=== PATIENT | female | born 1950 | race Caucasian/White ===

== ENCOUNTER → 2023-10-21 10:09 | Outpatient (REF) | payer OTHER, SELFPAY | LOC: HWRAD 10:09 | PROVIDERS: ATTENDING PHYSICIAN Physician Assistant Medical | DX: M54.16 Radiculopathy, lumbar region (principal) | CPT/HCPCS: 72110 ==

== ENCOUNTER 2024-01-31 08:52 | Emergency (ER) | payer OTHER, SELFPAY ==
[2024-01-31 08:54] VITALS: BP 182/90
[2024-01-31] MEDS: TYLENOL 1000 MG PO (10:36)
[2024-01-31 12:00] VITALS: BP 167/75
--- NOTE | 2024-01-31 12:00 | ED.GENMED ---
History of Present Illness
General
Chief Complaint: Fall
Source: patient and spouse
Exam Limitations: none
Time Seen by Provider: 01/31/24 09:12
Nursing documentation reviewed up to this point in time: agreed with
History of Present Illness
History of Present Illness:
73-year-old female past medical history of GI issues partial bowel resection presenting to the emergency department today after a trip and fall hitting her nose as well as her left wrist. She immediately felt discomfort to the left wrist denies
much discomfort to her nose or face did not lose consciousness not on blood thinners. Denies any chest pain shortness of breath back pain abdominal pain or lower extremity discomfort.
Past History
Past History
ED Past Medical History: Cancer (Breast) and Other (Diverticulitis, bowel perforation)
ED Past Surgical History: Bowel resection (Sigmoid colectomy), Cholecystectomy and Gynecological (Hysterectomy)
Social History
Alcohol: Occasional
Drug: None
Personal:
Living: with family
Review of Systems
Review of Systems
Allergies reviewed?: Yes
All Other Systems: ROS reviewed and negative except as documented in HPI and ROS
Phy Exam
Physical Exam
Physical Exam:
GENERAL: Alert , in no apparent distress
EYE: pupils equal and reactive
NECK: Supple, no significant adenopathy.
ENT: o/p clr, mmm.
CARDIAC: Regular rate and rhythm .
LUNGS: Clear breath sounds bilaterally, no acute respiratory distress, no wheezes/rales/rhonchi
ABDOMEN: Soft, without focal tenderness, no r/g, no cvat
NEUROLOGICAL: Alert and oriented, no focal neuro deficits
SKIN: Warm and dry, skin intact.
MUSCULOSKELETAL: Mild swelling and tenderness palpation to the area just distal to the ulna overlying the wrist. 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
No obvious deformity., well perfused.
PSYCH: Normal and appropriate interaction.
Course
Orders/Labs/Results
Orders:
Orders
01/31/24 09:23
CT Head W/o Iv Contrast Urgent
Comment:
Reason For Exam: fal lhit head
CR Hand - Left 2 Views Urgent
Comment:
Reason For Exam: fall hand pain
CR Wrist - Left Min 3 Views Urgent
Comment:
Reason For Exam: fall wrist pain
01/31/24 09:42
Acetaminophen [Tylenol] 1,000 mg PO NOW STA
Vital Signs
Initial and Last Documented VS:
Initial Vital Signs
Temp Pulse Resp BP Pulse Ox
97.8 F 58 18 182/90 99
01/31/24 08:54 01/31/24 08:54 01/31/24 08:54 01/31/24 08:54 01/31/24 08:54
Last Documented Vital Signs
Temp Pulse Resp BP Pulse Ox
97.8 F 58 18 182/90 99
01/31/24 08:54 01/31/24 08:54 01/31/24 08:54 01/31/24 08:54 01/31/24 08:54
Procedures
Splinting/Sling Placement
Left Wrist:
Procedure completed by: Myself
Pre-splint extermity exam: neurovascular intact
Type of splint: volar
Splint material: fiberglass
Splint checked by provider?: Yes
Type of sling: sling fitted
Normal distal neurovascular exam?: Yes
MDM/Problems Addressed
MDM/Problems Addressed:
73-year-old female presenting to the emergency department today with concerns of conical fall landing on her left wrist also hitting her nasal bridge. Did not lose consciousness not on blood thinners. Here patient has a small bruise to the nasal
bridge but no deformity normal remainder of the HEENT examination normal cranial nerve examination, 5 out of 5 upper and lower extremity strength normal no neck pain. Patient does also have tenderness to the left wrist. Head CT without acute
abnormalities. X-ray of the wrist showing triquetral fracture. Patient was placed in a splint and otherwise will follow-up with orthopedics. Return precautions given.
*Critical Care Note
Total Time (30-74mins, 75-104mins- exclusive of procedures): Not Applicable
ED Attending Note
-
Portions of this chart may have been created with voice recognition software.� Occasional wrong word or��sound alike� substitutions may have occurred due to the inherent limitations of voice recognition software.
Discharge Plan
Departure
Patient Disposition: Home (Routine Discharge)
Date of Disposition: 01/31/24
Time of Disposition: 12:04
Patient with high blood pressure during this ER visit?: No
Condition: Good
Covid-19: Not Applicable
Discharge Problem:
Fracture of triquetrum of left wrist
Instructions: Wrist Fracture
Prescriptions:
No Action
levothyroxine 100 MCG tablet
100 mcg PO DAILY
acetaminophen 500 MG tablet
500 mg PO Q6 PRN (Reason: pain)
lorazepam 0.5 MG tablet
0.5 mg PO Q6 PRN (Reason: anxiety)
calcium carbonate [calcium] 500 MG tablet
1,000 mg PO DAILY
pantoprazole 40 MG tablet,delayed release (DR/EC)
40 mg PO DAILY
hydrochlorothiazide 25 MG tablet
12.5 mg PO DAILY
letrozole 2.5 MG tablet
2.5 mg PO DAILY
cholecalciferol (vitamin D3) 2,000 UNIT tablet
2,000 unit PO DAILY
magnesium citrate [Citroma] 300 ML solution
300 ml PO ONCE Qty: 1 0RF
Referrals:
Elisa Perez PA-C [Family Provider] -
Fabricio Sanchez MD [Active] - Follow up in 5-7 days
Activity Restrictions/Additional Instructions:
You came to the emergency department today with concerns of wrist discomfort. You are found to have a triquetral fracture you were placed in a splint. Please follow closely with [facility]. Return to the emergency department for any worsening, new
or concerning symptoms.
Interventions
Interventions:
*Risk Screen - Suicide Last Done: 01/31/24 08:54
*General Assessment Last Done: 01/31/24 08:54
*Neglect/Abuse Screening Last Done: 01/31/24 08:54
ED- Fall Risk Assessment Last Done: 01/31/24 09:38
*ED COVID-19 Vaccine History Last Done: 01/31/24 08:54
ED-Musculoskeletal Assessment Last Done: 01/31/24 09:38
ED- Neurological Assessment Last Done: 01/31/24 09:38
ED-Skin Assessment Last Done: 01/31/24 09:38
Discharge Date and Time
Print Language: KAZAKH
== END 2024-01-31 12:37 | disposition home or self-care (01) ==
LOC: EMR 08:52
PROVIDERS: EMERGENCY PHYSICIAN Emergency Medicine; FAMILY PHYSICIAN Physician Assistant Medical
DX: S62.112A Displaced fracture of triquetrum [cuneiform] bone, left wrist, initial encounter for closed fracture (principal); S00.33XA Contusion of nose, initial encounter; W01.0XXA Fall on same level from slipping, tripping and stumbling without subsequent striking against object, initial encounter; Z85.3 Personal history of malignant neoplasm of breast; Z90.49 Acquired absence of other specified parts of digestive tract; Z90.710 Acquired absence of both cervix and uterus
CPT/HCPCS: 99284; 29125; 70450; 73110; 73120

== ENCOUNTER → 2024-05-01 13:57 | Outpatient (REF) | payer OTHER, SELFPAY | LOC: HWRAD 13:57 | PROVIDERS: ATTENDING PHYSICIAN Physician Assistant Medical | DX: M81.0 Age-related osteoporosis without current pathological fracture (principal) | CPT/HCPCS: 77080 ==

== ENCOUNTER → 2024-11-10 11:59 | Outpatient (REF) | payer OTHER, SELFPAY | LOC: HWWDC 11:59 | PROVIDERS: ATTENDING PHYSICIAN Physician Assistant Medical | DX: Z12.31 Encounter for screening mammogram for malignant neoplasm of breast (principal) | CPT/HCPCS: 77063; 77067 ==

== ENCOUNTER 2024-12-24 06:40 | Day surgery (SDC) | payer OTHER, SELFPAY ==
--- NOTE | 2024-12-24 09:39 | ITS.CL.CARDI ---
Manager Social - Cardioversion
Cardioversion
Procedure Report:
Date of Procedure: 12/24/24
Procedure: Cardioversion
Indication: Symptomatic atrial fibrillation
Performing Physician: Moreno Jackson MD
Technique: The patient was brought to the holding area. Signed informed consent was obtained. A time out was called and performed. The patient was anesthetized by the anesthesia service. Anticoagulation status was reviewed and appropriate. R2 pads
were placed anteriorly and posteriorly. A 200 J synchronized biphasic shock failed and then a 360J synchronized biphasic shock restored normal sinus rhythm without significant bradycardia. There were no complications.
Conclusion: Uncomplicated cardioversion from atrial fibrillation to sinus rhythm.
Recommendation: Routine post cardioversion care. Continue jail anticoagulation.
== END 2024-12-24 10:20 | disposition home or self-care (01) ==
LOC: CATH 06:40
PROVIDERS: ATTENDING PHYSICIAN Nuclear Medicine Nuclear Cardiology; FAMILY PHYSICIAN Physician Assistant Medical; OTHER PHYSICIAN Internal Medicine Cardiovascular Disease
DX: I48.91 Unspecified atrial fibrillation (principal); I10 Essential (primary) hypertension; E78.00 Pure hypercholesterolemia, unspecified; E03.9 Hypothyroidism, unspecified; I70.0 Atherosclerosis of aorta; E66.9 Obesity, unspecified; Z68.34 Body mass index [BMI] 34.0-34.9, adult; Z85.3 Personal history of malignant neoplasm of breast; Z87.891 Personal history of nicotine dependence; Z79.01 Long term (current) use of anticoagulants
CPT/HCPCS: 93312; 93320; 93325; 92960; 93005